=== PATIENT | female | born 2000 | race Caucasian/White ===

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

== ENCOUNTER 2020-10-20 16:16 | Emergency (ER) | payer BC ==
[~2020-10-20] VITALS: Ht 193 cm; Wt 65.8 kg
[2020-10-20 17:31] LABS: *BILIRUBIN,URIN NEGATIVE (NEGATIVE); *BLOOD, URINE 2+ (NEGATIVE); *CLARITY,URINE CLEAR (CLEAR); *COLOR,URINE LIGHT YELLOW (YELLOW); *KETONES,URINE NEGATIVE (NEGATIVE); *UROBILINOGEN,URINE 0.2 E.U./dl (NORMAL); LEUKOCYTE ESTERASE ,URINE 2+ (NEGATIVE); NITRITE, URINE NEGATIVE (NEGATIVE); UGLUCOSE NEGATIVE (NEGATIVE)
[2020-10-20] MEDS ORDERED: CEFTRIAXONE 1 G VIAL IM ONE (17:45)
[2020-10-20 18:00] LABS: *URINE HCG, QUAL NEGATIVE (NEGATIVE)
[2020-10-20] MEDS ORDERED: CEFTRIAXONE 1 G VIAL ONE (18:03)
[2020-10-20] MEDS ORDERED: CEFI200S PO (18:42)
[2020-10-20] MEDS ORDERED: IBUP-1955 PO (18:42)
[2020-10-20 18:54] LABS: BACTERIA,URINE FEW /HPF (NONE SEEN); RBC,URINE 20-50 /HPF (0-3); WBC,URINE 20-50 /HPF (0-3)
== END 2020-10-20 18:50 | disposition home or self-care (01) ==
LOC: ER 16:16
DX: N10 Acute pyelonephritis (principal); Z72.51 High risk heterosexual behavior
CPT/HCPCS: 81001; 84703; 87086; 87491; 96372; 99283; J0696; A4663